=== PATIENT | female | born 1965 | race Caucasian/White ===

== ENCOUNTER 2017-07-23 10:53 | Inpatient (IN) | payer OTHER ==
[~2017-07-23] VITALS: Ht 172.7 cm; Wt 69.5 kg
--- NOTE | ~2017-07-23 | O ---
[place], [place] OPERATIVE NOTE [facility]: [id number] UNIT #: [id number] ROOM: 420 DOCTOR: EMMY LOPEZ DO BIRTHDATE: [birth year] DOS: 07/24/2017 PREOPERATIVE DIAGNOSIS: Left intertrochanteric hip fracture, 2-part. POSTOPERATIVE DIAGNOSIS: Left intertrochanteric hip fracture, 2-part. PROCEDURE: Left intertrochanteric hip fracture intramedullary nail fixation. SURGEON: Emmy Lopez DO. SOURCING SPECIALIST: Preeti. PREOPERATIVE INDICATIONS: The patient is a 52-year-old female who states that [place] when a horse stepped on her right foot, causing her to fall onto her left hip. The patient had pain and inability to ambulate. She was brought to the Emergency Department at [facility]. X-rays were obtained, followed by a CAT scan. A nondisplaced left intertrochanteric fracture, 2-part was identified. The risks and benefits of the procedure were explained to the patient preoperatively. Preoperative labs and x-rays were completed. PROCEDURE IN DETAIL: The left hip was marked in the holding area. The patient was brought to the operative suite. Spinal anesthetic was performed by Anesthesia. A timeout was performed. The patient was placed supine on the fracture table with the right lower extremity flexed and externally rotated and the left lower extremity extended with minimal traction. The left lower extremity was prepped and draped in the usual orthopedic manner. The C-arm was utilized to evaluate the fracture site. The area just proximal to the greater trochanter was injected with Marcaine 0.25% with epinephrine. A longitudinal incision was made just proximal to the greater trochanter. Subcutaneous tissue was spread down to the level of the fascia. The fascia was divided longitudinally. The greater trochanter was entered with a partially threaded K-wire. The positioning was evaluated under C-arm in multiple planes. When this was found to be adequate, the reamer and soft tissue protector were placed over the K-wire and advanced to the level of the lesser trochanter. The Synthes 11 x 130 x 170 TFN nail was placed from proximal to distal under C-arm guidance. When this was found to be adequate in multiple planes. The 130 degree guide was placed. The skin was injected with Marcaine with epinephrine. An incision was made. Subcutaneous tissue was spread down to the level of bone. The trocar and cannula were advanced to the level of the bone. Positioning was evaluated under C-arm and found to be adequate. A partially threaded K-wire was placed from lateral to medial through the neck and into the head of the femur. AP and lateral x-rays by C-arm confirmed the position. The length was measured. The reamer was set at 100 and advanced over the K-wire under C-arm guidance. The 100 mm helical blade was advanced by hand under C-arm guidance. When this was found to be within 1 cm of the some cortical bone and the position was adequate on AP and lateral position, the set screw was tightened and in the superior portion of the elizabeth. The compression was placed at the fracture site. The 130 degree cannulas were removed as was the K-wire. Attention was then turned to the distal locking screw. The triple cannula system was put into place. This [place], [place] OPERATIVE NOTE NAME: ALHAJIQUE Rick UNIT #: [id number] ROOM: [facility] DOCTOR: EMMY LOPEZ DO BIRTHDATE: [birth year] was advanced to the level of the skin. The skin was injected with Marcaine 0.25% with epinephrine. An incision was made sharply with a scalpel. Subcutaneous tissue was spread down to the level of the bone. The cannulas were advanced to the level of the bone. The bone was dimpled with the trocar. The calibrated drill bit was utilized to drill the distal locking hole. The length was measured with the depth gauge. The 36 mm distal locking screw was advanced manually. The positioning was evaluated under C-arm in multiple planes and found to be adequate. The guides were removed. C-arm was used to confirm the position of the hardware and the fracture site. All incisions were copiously irrigated with normal saline. The wounds were closed in a layered fashion with 0 Vicryl for the fascia, followed by 2-0 Vicryl and skin tenisha. The incisions were then injected again with Marcaine 0.25% with epinephrine. Xeroform, 4 x 4s, and an ABD were applied followed by Tegaderm dressing. The bilateral lower extremities were released from the fracture table and placed supine on the table. The patient was taken to the recovery room in satisfactory condition. Sponge and needle count correct. ESTIMATED BLOOD LOSS: 50 mL. DRAINS: None. PACKING: None. SPECIMENS: None. COMPLICATIONS: None. FINDINGS: Nondisplaced 2-part intertrochanteric fracture, left. IMPLANTS: Synthes TFN 11 x 130 x 170, Synthes helical blade 100 mm, Synthes locking screw 36 mm. Please noted that the patient received clindamycin 900 mg preoperatively and did develop a skin rash which resolved using Benadryl. [place], [place] OPERATIVE NOTE NAME: QUE MANE Rick UNIT #: [id number] ROOM: [facility] DOCTOR: EMMY LOPEZ DO BIRTHDATE: [birth year] EMMY LOPEZ DO CM:OPRECORD:OPERATIVE NOTE 1416 EMMY LOPEZ DO 07/24/17 1647 interface
[~2017-07-23 10:53] MED LIST: CLARITIN10 MG PO; CORDROL20 MG PO; CYCLOBENZAPRINE10 MG PO; LOPRESSOR50 M1 PO; Motrin,Rufen800 MG PO; NAPROSYN500 MG PO; NEXIUM40 MG PO; PERCOCET 325 MG1 TA2 PO; SEPTRA DS 800 M1 TAB PO; TRAMADOL HCL50 MG PO; VIBRAMYCIN100 MG PO
[2017-07-23 11:10] VITALS: BP 146/78
--- NOTE | 2017-07-23 13:11 | NUR ---
PAIN IMPROVED, PT REFUSES MORE MEDICATION AT THIS TIME. CT SCAN PENDING.
[2017-07-23 14:24] LABS: BASO % 0.3 % (0.0-1.0); EOS # 0.2 10*3/uL (0.0-0.4); EOS % 1.8 % (1.0-4.0); HEMATOCRIT 42.3 % (37.0-47.0); HEMOGLOBIN 14.4 g/dl (12.0-16.0); LYMPH # 1.4 10*3/uL (1.3-4.4); LYMPH % 12.1 % (27.0-41.0); MEAN CELL VOLUME 88.9 fl (81.0-99.0); MEAN CORPUSCULAR HGB 30.3 pg (27.0-31.0); MEAN PLATELET VOLUME 10.3 fl (9.6-12.3); MONO # 0.7 10*3/uL (0.1-1.0); MONO % 5.8 % (3.0-9.0); NEUT # 9.4 10*3/uL (2.3-7.9); NEUT % 79.6 % (47.0-73.0); PLATELET COUNT AUTOMATED 188 10*3/uL (130-400); RED BLOOD COUNT 4.76 10*6/uL (4.10-5.10); RED CELL DISTRI WIDTH 13.1 % (0-14.5); WHITE BLOOD COUNT 11.8 10*3/uL (4.8-10.8)
[2017-07-23 14:38] LABS: ALBUMIN 3.4 gm/dl (3.1-4.5); ALKALINE PHOSPHATASE 104 U/L (45-117); BUN 14 mg/dl (7-24); CHLORIDE 108 mmol/L (98-107); CREATININE 0.64 mg/dL (0.55-1.02); POTASSIUM 3.7 mmol/L (3.5-5.1); SGOT/AST 18 IU/L (3-35); SGPT/ALT 16 U/L (12-78); SODIUM 141 mmol/L (136-145); TOTAL PROTEIN 7.3 gm/dL (6.4-8.2)
--- NOTE | 2017-07-23 14:43 | NUR ---
DEANID IV PUSH STOP TIME NOW
--- NOTE | 2017-07-23 14:50 | NUR ---
DILAUDID DOSE GIVEN WAS VERY SOON EFFECTIVE FOR PAIN CONTROL. POX IN PLACE TO MONITOR POST-DOSING IS 8%.
[2017-07-23 15:30] VITALS: BP 167/89
--- NOTE | 2017-07-23 15:30 | NUR ---
A 52, admitted to , under the services of SANDRA Sage DO with a diagnosis of LEFT NON-DISPLACED FRACTURE OF HIP. Chief complaint is PAIN IN HIP AFTER HORSE STEPPED ON RT FOOT. POSITIVE PULSES BILAT PEDAL. IV TO LEFT ANTECUBITAL. Patient arrived via stretcher from ER. Monitor applied. Initial assessment completed. Vital signs taken and recorded. SANDRA SAGE DO notified of admission to the unit. Orders received. See assessment for past medical history, medications and allergies. Patient and/or family oriented to unit. [facility] Clothing/patient valuable form completed. HAYLEE DIAZ
[2017-07-23 16:00] VITALS: BP 167/89
[2017-07-23 16:10] LABS: BILIRUBIN NEGATIVE (NEGATIVE); BLOOD TRACE-INTACT (NEGATIVE); CLARITY CLEAR (CLEAR); COLOR YELLOW (YELLOW); GLUCOSE NEGATIVE (NEGATIVE); KETONE NEGATIVE (NEGATIVE); LEUKO ESTERASE NEGATIVE (NEGATIVE); NITRITE NEGATIVE (NEGATIVE); PH 7.5 (5.0-9.0); SPECIFIC GRAVITY 1.015 (1.005-1.030); UROBILINOGEN 0.2 E.U./dl (0.2-1.0)
[2017-07-23 16:23] LABS: WBC 0-2 wbc/hpf (0-5)
[2017-07-23 16:24] LABS: BACTERIA TRACE
[2017-07-23 16:25] LABS: RBC 0-2 rbc/hpf (0-2)
[2017-07-23 16:31] LABS: FREE T4 1.19 ng/dl (0.76-1.46)
[2017-07-23 16:36] LABS: THYROID STIM HORMONE (HS) 1.72 uIU/ml (0.358-4.75)
--- NOTE | 2017-07-23 18:43 | NUR ---
MORPHINE GIVEN FOR LEFT HIP PAIN, LEFT HEEL DISCOMFORT. RATE 09/03. SCD & SHAY PLACED ONTO RIGHT LEG PER ORDERS
--- NOTE | 2017-07-23 19:51 | NUR ---
PT STATING SOME RELIEF IN HIP PAIN. VISITORS AT BEDSIDE.
[2017-07-23 20:00] VITALS: BP 165/76
--- NOTE | 2017-07-23 20:14 | NUR ---
GINGERALE AND ICE PROVIDED FOR PT. SHE ANSWERS "YES" TO WHEN ASKED IF PAIN IS CONTROLLED.
--- NOTE | 2017-07-23 22:22 | NUR ---
PT HAD COMPLETE PREOP BATH AND BED CHANGE DONE. NORCO GIVEN AT 2208 POST BATH FOR COMPLAINTS OF LT HIP PAIN 09/03,
--- NOTE | 2017-07-23 22:43 | NUR ---
NORCO WAS EFFECTIVE FOR PAIN. PT DOZING, BODY RELAXED.
--- NOTE | 2017-07-23 23:35 | NUR ---
STATES MINIMAL RELIEF FROM EARLIER NORCO BUT CONTINUES TO C/O PAIN RATING AN 8. MEDICATED WITH MORPHINE IV PER PRN ORDER. CALL LIGHT WITHIN REACH. WILL MONITOR FOR EFFECTIVENESS
[2017-07-24] VITALS (9 sets, daily range): BP systolic 142–183; BP diastolic 64–90
--- NOTE | 2017-07-24 00:30 | NUR ---
EARLIER MEDS APPEAR EFFECTIVE. SLEEPING. RESPIRATIONS EASY. VSS. CALL LIGHT WITHIN REACH. NPO FOR SURGERY IN AM
--- NOTE | 2017-07-24 02:00 | NUR ---
CONTINUES TO SLEEP
--- NOTE | 2017-07-24 03:37 | NUR ---
REQUESTED AND RECEIVED MORPHINE IV PER PRN ORDER FOR COMPLAINTS OF LEFT HIP PAIN RATING A 10. CALL LIGHT WITHIN REACH. WILL MONITOR FOR EFFECTIVENESS
--- NOTE | 2017-07-24 04:15 | NUR ---
EARLIER MEDS APPEAR EFFECTIVE, SLEEPING. RESPIRATIONS EASY. CALL LIGHT WITHIN REACH.
--- NOTE | 2017-07-24 04:53 | NUR ---
PATIENT AWAKENS, YELLS OUT IN PAIN. LEG READJUSTED AND ELEVATED TO KEEP HEEL OFF BED. MEDICATED WITH NORCO PER PRN ORDER WITH A SIP OF WATER FOR C/O LEFT HIP AND HEEL PAIN RATING A 10. CALL LIGHT WITHIN REACH. WILL MONITOR FOR EFFECTIVENESS
--- NOTE | 2017-07-24 06:00 | NUR ---
MEDS APPEAR EFFECTIVE. RESTING WITH EYES CLOSED.
--- NOTE | 2017-07-24 06:25 | NUR ---
TRANSPORTED OFF FLOOR VIA BED FOR SURGERY THIS AM
--- NOTE | 2017-07-24 06:52 | NUR ---
Shift chart check completed.
[2017-07-24 07:01] LABS: BASO % 0.2 % (0.0-1.0); EOS # 0.2 10*3/uL (0.0-0.4); EOS % 1.6 % (1.0-4.0); HEMATOCRIT 43.5 % (37.0-47.0); HEMOGLOBIN 14.5 g/dl (12.0-16.0); LYMPH # 1.1 10*3/uL (1.3-4.4); LYMPH % 11.5 % (27.0-41.0); MEAN CELL VOLUME 89.3 fl (81.0-99.0); MEAN CORPUSCULAR HGB 29.8 pg (27.0-31.0); MEAN CORPUSCULAR HGB CONC 33.3 g/dl (33.0-37.0); MEAN PLATELET VOLUME 10.5 fl (9.6-12.3); MONO # 0.5 10*3/uL (0.1-1.0); MONO % 5.5 % (3.0-9.0); NEUT % 80.9 % (47.0-73.0); PLATELET COUNT AUTOMATED 169 10*3/uL (130-400); RED BLOOD COUNT 4.87 10*6/uL (4.10-5.10); RED CELL DISTRI WIDTH 13.2 % (0-14.5); WHITE BLOOD COUNT 9.9 10*3/uL (4.8-10.8)
--- NOTE | 2017-07-24 07:16 | NUR ---
PATIENT IN SURGERY.
[2017-07-24 07:31] LABS: CHLORIDE 106 mmol/L (98-107); POTASSIUM 4.1 mmol/L (3.5-5.1); SODIUM 137 mmol/L (136-145)
[2017-07-24 07:43] LABS: ALBUMIN 3.1 gm/dl (3.1-4.5); ALKALINE PHOSPHATASE 102 U/L (45-117); BUN 17 mg/dl (7-24); CHOLESTEROL 169 mg/dL (<200); HDL CHOLESTEROL 33 mg/dl (40-60); LDL CHOLESTEROL 119 mg/dL (9-159); MAGNESIUM 2.3 mg/dL (1.5-2.1); PHOSPHOROUS 3.4 mg/dL (2.5-4.9); SGOT/AST 14 IU/L (3-35); SGPT/ALT 15 U/L (12-78); TRIGLYCERIDES 83 mg/dl (<150); VLDL CHOLESTEROL 17 mg/dL (6-40)
--- NOTE | 2017-07-24 08:49 | NUR ---
MED REC IS UNCHANGED EVEN THOUGH THE PATIENT IS IN SURGERY THIS NURSE DID THE ADMISSION YESTERDAY/
--- NOTE | 2017-07-24 09:03 | NUR ---
PHYSICAL THERAPY Patient in surgery. Will require ortho orders to initate. Thank you for this referral. Janey lemos,PT
--- NOTE | 2017-07-24 09:03 | NUR ---
Occupational Therapy referral received. Patient in surgery this am. OTR will evaluate after surgery as indicated. Teresa Damon OTR/Juhi
--- NOTE | 2017-07-24 09:13 | NUR ---
case management attempted to visit with patient, patient out of the room for surgery. will see at a later time
--- NOTE | 2017-07-24 10:43 | NUR ---
RETURNED FROM SURGERY WITH DRESSING INTACT TO LEFT HIP. VSS. BP 16/80 MANUAL. AAOX3 WITH NO C/O PAIN AT PRESENT. TOLD TO NOTIFY STAFF OF INCREASE IN PAIN. PER PATIENT SHE IS NOT GOING TO A SNF BUT WILL GO TO HER SISTERS FOR RECOVERY. PPP BILAT. SCD TO BILAT LEGS ON & TOLERATING THEM WELL. IV HEP LOCK REMOAN SECURE. VANCOMYCIN STARTED PER ORDERS.
--- NOTE | 2017-07-24 11:06 | NUR ---
PHYSICAL THERAPY PAtient returned form surgery, anxious to get OOB. Motor awake left foot but continues with alterend sensation. Will attempt out of bed when motor and sensation have both returned. Thank you for this referral. sabina Box,PT
--- NOTE | 2017-07-24 12:20 | NUR ---
ZOFRAN GIVEN AFTER 200cc EMESIS. DRESSING REMAINS INTACT TO LEFT HIP. ICE PACK IN PLACE - MOVING TOES & SCD ON BILAT
--- NOTE | 2017-07-24 13:59 | NUR ---
PHYSICAL THERAPY PAtient evaluated on 4, full evaluation to follow. Continue with PT as per plan of care with fall, recent fall at home with left femur fracture with nailing repair 07/24/17 permitted WBAT and acute debility precautions. refuses SNF. Home [facility] and home health RN and PT. PAtient is moderate complexity via chart review, tests and evaluation: [id number]. Thank you for this referral. Janey Box,PT
--- NOTE | 2017-07-24 14:05 | NUR ---
WASHED UP ALL THE BETADINE FROM AROUND SURGICAL SITE & LEGS D/T ITCHING. NUBAIN GIVEN
--- NOTE | 2017-07-24 14:36 | NUR ---
NUBAIN EFFECTIVE - ITCHING RESOLVED PER PT - DOZING IN CHAIR
--- NOTE | 2017-07-24 14:41 | NUR ---
Occupational Therapy evaluation completed this date on 4 with full eval to follow. Precautions include fall risk, WBAT LLE, left hip nailing, moderate complexity level 11648. Recommend OT per POC and OT home health upon d/c as patient refuses SNF. Thank you for this referral. Teresa Damon OTR/l
--- NOTE | 2017-07-24 19:10 | NUR ---
PT. AWAKE, ALERT, AND ORIENTED. PT. RATED PAIN AT "8/10" ON 0-10 SCALE. REQUESTED PAIN MEDICATION, WAS GIVEN 325 MG OF NORCO PER PRN ORDERS. PT. HAD NC OFF UPON ENTERING AND SPO2 @ 89 UPON ASSESSING. PT. WAS ENCOURAGED TO LEAVE NC ON @ 3L, AND TO COUGH AND DEEP BREATHE, AND REPOSITION FREQUENTLY. PT. REQUESTED MORE ICE FOR HIP, ICE WAS GIVEN, DRESSING WAS ASSESSED CLEAN, DRY AND INTACT. PT. DID NOT HAVE SCD'S ON AT THIS TIME, SCD'S WERE PLACED ON PT. PRIOR TO EXITING THIS NURSE EXITING THE ROOM. LUNG SOUNDS WERE DIMINISHED AND CLEAR. S1S2 HEART SOUNDS ASSESSED, PPP, NO EDEMA. NORMOACTIVE BOWELS SOUNDS X 4 QUADS. CALL LIGHT WITHIN REACH, BED IN LOWEST POSITION, WHEELS LOCKED.
--- NOTE | 2017-07-24 20:10 | NUR ---
PT. RESTING IN BED, RESPIRATIONS EASY AND REGULAR, NO SIGNS OR SYMPTOMS OF PAIN OR DISCOMFORT. PRN NORCO EFFECTIVE AT THIS TIME. CALL LIGHT IN REACH.
[2017-07-25] VITALS: BP 124/53
--- NOTE | 2017-07-25 00:01 | NUR ---
patient medicated with prn norco for pain on the left side rated 9/10 on a 0/10 pain scale
--- NOTE | 2017-07-25 01:26 | NUR ---
PATIENT RESTING IN BED WITH RESPS EASY AND REGULAR. MEDICATION SEEMS EFFECTIVE. BED IN LOWEST POSITION, CALL LIGHT IN REACH
--- NOTE | 2017-07-25 04:03 | NUR ---
MEDICATED WITH PRN NORCO FOR PAIN RATED 8/10 ON A 0/10 PAIN SCALE
--- NOTE | 2017-07-25 05:30 | NUR ---
24 HR chart check completed.
[2017-07-25 08:00] VITALS: BP 106/62
[2017-07-25 08:09] LABS: BASO % 0.2 % (0.0-1.0); EOS # 0.2 10*3/uL (0.0-0.4); EOS % 2.2 % (1.0-4.0); HEMATOCRIT 43.5 % (37.0-47.0); HEMOGLOBIN 13.9 g/dl (12.0-16.0); LYMPH # 1.4 10*3/uL (1.3-4.4); LYMPH % 15.3 % (27.0-41.0); MEAN CELL VOLUME 91.6 fl (81.0-99.0); MEAN CORPUSCULAR HGB 29.3 pg (27.0-31.0); MEAN PLATELET VOLUME 10.7 fl (9.6-12.3); MONO # 0.7 10*3/uL (0.1-1.0); MONO % 7.9 % (3.0-9.0); NEUT # 6.6 10*3/uL (2.3-7.9); NEUT % 74.2 % (47.0-73.0); PLATELET COUNT AUTOMATED 155 10*3/uL (130-400); RED BLOOD COUNT 4.75 10*6/uL (4.10-5.10); RED CELL DISTRI WIDTH 13.4 % (0-14.5)
--- NOTE | 2017-07-25 08:17 | NUR ---
PHYSICAL THERAPY Pt seen this AM 1:1 for her therapy session. Bernadette said that she would try transfer up into her bedside chair, but said that she did not have her pain meds yet but would try. Start with rom to left LE hip before transfer up, SCD's taken off and rom within pain tolerance. Followed by transfer supine up into sitting but due to Pt's pain wanting to lay back down at this time. Said that her pain meds are due and to come back after that and she would try again. Pt is a left hip nailing and is WBAT. NERY ESPINOZA MOLD MAKER PLASTIC MOLDS.
--- NOTE | 2017-07-25 08:22 | NUR ---
PATIENT C/O LEFT HIP PAIN. RATE 7/10 ON PAIN SCALE. MEDICATED WITH NORCO PER PRN ORDER. WILL CONTINUE TO MONITOR.
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
--- NOTE | 2017-07-25 10:23 | NUR ---
PATIENT C/O SEVERE PAIN AFTER PHYSICAL THERAPY. MEDICATED WITH MORPHINE SULFATE 2MG IV PER PRN ORDER. WILL CONTINUE TO MONITOR.
--- NOTE | 2017-07-25 10:41 | NUR ---
case management received a message that patient will be going home on lovenox 40mg daily x 2 weeks, called [facility], medication needed a prior authorization, [place], spoke to Rose, medication was approved, call [facility] back and patient will have a $0 copay, hospitalist nurse director notified
--- NOTE | 2017-07-25 11:18 | NUR ---
PHYSICAL THERAPY Back this AM to see Bernadette Pt was up in her bedside chair at this visit. Transfer sit/stand with MOD A X 1, standing balance with wheeled walker once up MIN A X 1. Then gait with W/W 26' X 1, and MOD ARTIST MANNEQUIN COLORING X 1, with cueing for gait, walker and WBAT safety with C/O left hip pain with her gait but did well this her first gait. Pt back up in her bedside chair, call light and tray in front no other complaint, treatment time 17 min. NERY ESPINOZA CORRECTIONAL MANAGER.
[2017-07-25 12:00] VITALS: BP 112/67
[2017-07-25] MEDS ORDERED: BSC DEVI (12:16)
[2017-07-25] MEDS ORDERED: WALKER DEVI (12:16)
[2017-07-25] MEDS ORDERED: Lovenox40 MG/0.4 SC (12:16)
--- NOTE | 2017-07-25 13:01 | NUR ---
PATIENT C/O LEFT HIP PAIN. MEDICATED WITH PERCOCET PER PRN ORDER. WILL CONINTUE TO MONITOR.
--- NOTE | 2017-07-25 13:20 | NUR ---
PHYSICAL THERAPY Bernadette was seen this PM 1:1 for her physical therapy session. Pt having C/O more left hip, hamstring pain. Transfer supine/sit MOD A X 1, sitting balance CGA X 1, sit/stand and up on wheeled walker for standing balance, weight shift MIN A X 1, followed by gait 10' X 1, and wanting to get back into bed said that the hip pain was just hurting her and wanting to quit. Pt back supine in bed and feeling better now and just wanting to rest, treatment time 16 min. NERY ESPINOZA LAB ASSISTANT.
--- NOTE | 2017-07-25 13:36 | NUR ---
Patient requested home health upon discharged with [facility], however [facility] does not accept this patients insurance. Will contact [facility] and fax referral.
[2017-07-25] MEDS ORDERED: NICODERM CQ1 EAC2 T (15:35)
[2017-07-25 16:00] VITALS: BP 122/89
--- NOTE | 2017-07-25 17:21 | NUR ---
PATIENT MEDICATED WITH OXY IR 5MG PER PRN ORDER FOR C/O LEFT HIP PAIN. WILL CONTINUE TO MONITOR.
[2017-07-25 20:00] VITALS: BP 164/72
--- NOTE | 2017-07-25 20:00 | NUR ---
ASSUMED CARE OF PATIENT. PATIENT RESTING IN BED WATCHING TV. REPOSITIONED WITH MINIMAL ASSIST TO RIGHT SIDE. ASSESSMENT COMPLETE. ALERT AND ORIENTED TO PERSON PLACE AND TIME. RESPIRATIONS EASY AND REGULAR. DENIES SHORTNESS OF BREATH OR COUGH. NO EDEMA NOTED. DENIES CHEST PAIN OR PRESSURE. DRESSING TO LEFT HIP DRY AND INTACT. BED IN LOWEST POSITOIN, CALL LIGHT IN REACH
--- NOTE | 2017-07-25 20:53 | NUR ---
PRN PERCOCET GIVEN FOR C/O LEFT HIP PAIN RATED 8/10 ON A 0/10 PAIN SCALE. RIGHT DOSE AND PATIENT CHECKED WITH ID BAND AND PATIENT STATED VERBALLY. BED IN LOWEST POSITION, CALL LIGHT IN REACH
--- NOTE | 2017-07-25 21:53 | NUR ---
MEDICATION EFFECTIVE PER PATIENT
[2017-07-26] VITALS: BP 182/88
--- NOTE | 2017-07-26 00:30 | NUR ---
MEDICATED WITH PRN OXY IR FOR C/O LEFT HIP PAIN RATED 6/10 ON A 0/10 PAIN SCALE. WILL MONITOR
--- NOTE | 2017-07-26 01:30 | NUR ---
DR HASSAN AWARE OF ELEVATED BP. STATES TO WAIT AND KEEP AN EYE ON IT. WILL MONITOR
--- NOTE | 2017-07-26 01:32 | NUR ---
PATIENT RESTING WITH EYES CLOSED. RESPS EASY AND REGULAR. MEDICATION SEEMS EFFECTIVE
[2017-07-26 04:00] VITALS: BP 188/87
--- NOTE | 2017-07-26 04:15 | NUR ---
DR CURRY AWARE OF BLOOD PRESSURE 188/87. ORDER FOR TORADOL DUE TO PATIENT BEING IN PAIN, WILL MONITOR.
[2017-07-26 06:05] LABS: BASO % 0.2 % (0.0-1.0); EOS # 0.3 10*3/uL (0.0-0.4); EOS % 3.1 % (1.0-4.0); HEMATOCRIT 40.1 % (37.0-47.0); HEMOGLOBIN 13.4 g/dl (12.0-16.0); LYMPH % 11.5 % (27.0-41.0); MEAN CELL VOLUME 89.1 fl (81.0-99.0); MEAN CORPUSCULAR HGB 29.8 pg (27.0-31.0); MEAN CORPUSCULAR HGB CONC 33.4 g/dl (33.0-37.0); MEAN PLATELET VOLUME 10.5 fl (9.6-12.3); MONO # 0.7 10*3/uL (0.1-1.0); MONO % 8.7 % (3.0-9.0); NEUT # 6.3 10*3/uL (2.3-7.9); NEUT % 76.1 % (47.0-73.0); PLATELET COUNT AUTOMATED 148 10*3/uL (130-400); WHITE BLOOD COUNT 8.3 10*3/uL (4.8-10.8)
[2017-07-26 06:19] LABS: ALBUMIN 2.6 gm/dl (3.1-4.5); ALKALINE PHOSPHATASE 83 U/L (45-117); BUN 12 mg/dl (7-24); CHLORIDE 102 mmol/L (98-107); CREATININE 0.65 mg/dL (0.55-1.02); POTASSIUM 3.8 mmol/L (3.5-5.1); SGOT/AST 20 IU/L (3-35); SGPT/ALT 18 U/L (12-78); SODIUM 136 mmol/L (136-145); TOTAL PROTEIN 6.5 gm/dL (6.4-8.2)
[2017-07-26 08:00] VITALS: BP 158/76
--- NOTE | 2017-07-26 08:25 | NUR ---
PHYSICAL THERAPY Bernadette seen this AM 1:1 and having her pain meds in her which helped. Transfer supine/sit MOD A X 1, sitting balance supervision X 1. Sit/stand standing balance once up MIN A X 1. Gait 60' X 2, with wheeled walker and WBAT left LE and doing well with this, MOD A X 1, with cueing for safety. Pt up in her bedside chair, call light, phone and rom to left LE with improvement in rom and pain. NERY ESPINOZA DIRECTOR COST.
[2017-07-26] MEDS ORDERED: PERCOCET 5-3251 EACH PO (10:32)
--- NOTE | 2017-07-26 10:47 | NUR ---
case management visits with patient, patient will be going home today, recieved scripts for walker and bedside commode, patient chose [facility], called [facility], faxed scripts, they will deliver to patient's sisters home, tool and production planner will also notify [facility]
--- NOTE | 2017-07-26 10:50 | NUR ---
Patient being discharged to home with [facility]. Faxed referral yesterday 07/25/17. Called [facility] and notfied patient is discharged today.
--- NOTE | 2017-07-26 10:54 | NUR ---
case management received a message from Torri at [facility], they do not take patient's insurance, will try another company
--- NOTE | 2017-07-26 11:10 | NUR ---
case management called [facility] in [place], they accept patient's insurance, script and patient's information faxed to them, they stated that patient will have to pick these items up, informed patient where company was located and they family would have to pick these up. patient verbalized understanding
--- NOTE | 2017-07-26 11:56 | NUR ---
PT C/O PAIN IN THE HIP REQUESTING PRN PAIN MEDICATION ADMISTERED ORDERED, WILL MONITOR EFFECTS
--- NOTE | 2017-07-26 12:23 | NUR ---
Discharge instructions reviewed with patient/family. Patient receptive and verbalizes understanding. Follow-up care arranged. Written instructions given to patient/family. YULIYA AVALOS
--- NOTE | 2017-07-30 07:49 | NUR ---
PHYSICAL THERAPY CO-SIGN I approve of the Phyical Therapy notes written above. ROSHAN NORWOOD PT
== END 2017-07-26 12:23 | disposition home health service (06) | DRG 480 ==
LOC: ED 10:53 → 4E 14:21 → EDHOLD 14:21 → 4E 14:36
PROVIDERS: Internal Medicine; Nurse Practitioner Family; Orthopaedic Surgery; Registered Nurse; ADMIT Internal Medicine
PROC: 0QH706Z Insertion of Intramedullary Internal Fixation Device into Left Upper Femur, Open Approach (ICD-10-PCS; principal; 2017-07-24)
DX: S72.142A Displaced intertrochanteric fracture of left femur, initial encounter for closed fracture (principal); E43 Unspecified severe protein-calorie malnutrition; E87.8 Other disorders of electrolyte and fluid balance, not elsewhere classified; M32.9 Systemic lupus erythematosus, unspecified; E83.41 Hypermagnesemia; I10 Essential (primary) hypertension; D72.829 Elevated white blood cell count, unspecified; F17.200 Nicotine dependence, unspecified, uncomplicated; R73.9 Hyperglycemia, unspecified; E53.8 Deficiency of other specified B group vitamins; M25.562 Pain in left knee; S99.921A Unspecified injury of right foot, initial encounter; W18.31XA Fall on same level due to stepping on an object, initial encounter; Y93.52 Activity, horseback riding; Y92.89 Other specified places as the place of occurrence of the external cause; Z90.710 Acquired absence of both cervix and uterus; Z90.49 Acquired absence of other specified parts of digestive tract; Z82.49 Family history of ischemic heart disease and other diseases of the circulatory system; Z88.0 Allergy status to penicillin; Z71.6 Tobacco abuse counseling; Z88.8 Allergy status to other drugs, medicaments and biological substances; Z91.041 Radiographic dye allergy status; Y99.8 Other external cause status; Z68.23 Body mass index [BMI] 23.0-23.9, adult; Z79.01 Long term (current) use of anticoagulants

== ENCOUNTER → 2017-08-09 | Outpatient (CLI) | payer OTHER ==
[~2017-08-09] MED LIST changes: +BSC DEVI; +Lovenox40 MG/0.4 SC; +NICODERM CQ1 EAC2 T; +PERCOCET 5-3251 EACH PO; +WALKER DEVI
== END | disposition home or self-care (01) ==
LOC: ORTHO 02:48
DX: S72.102D Unspecified trochanteric fracture of left femur, subsequent encounter for closed fracture with routine healing (principal); X58.XXXD Exposure to other specified factors, subsequent encounter

== ENCOUNTER 2017-08-24 18:25 | Emergency (ER) | payer OTHER ==
[~2017-08-24] VITALS: Ht 172.7 cm; Wt 68.0 kg
== END 2017-08-24 23:30 | disposition home or self-care (01) ==
LOC: ED 18:25
DX: G89.18 Other acute postprocedural pain (principal); M25.552 Pain in left hip; F17.200 Nicotine dependence, unspecified, uncomplicated; Z90.710 Acquired absence of both cervix and uterus; Z98.890 Other specified postprocedural states; Z79.899 Other long term (current) drug therapy; Z91.041 Radiographic dye allergy status; Z88.0 Allergy status to penicillin; Z88.1 Allergy status to other antibiotic agents

== ENCOUNTER → 2017-09-11 | Outpatient (CLI) | payer OTHER | END | disposition home or self-care (01) | LOC: ORTHO 00:51 | DX: M25.552 Pain in left hip (principal); Z98.890 Other specified postprocedural states ==

== ENCOUNTER → 2017-10-08 | Outpatient (CLI) | payer OTHER | END | disposition home or self-care (01) | LOC: ORTHO 03:04 | DX: S72.145D Nondisplaced intertrochanteric fracture of left femur, subsequent encounter for closed fracture with routine healing (principal); X58.XXXD Exposure to other specified factors, subsequent encounter ==

== ENCOUNTER → 2018-01-20 | Outpatient (CLI) | payer OTHER | END | disposition home or self-care (01) | LOC: ORTHO 03:51 | DX: S72.145D Nondisplaced intertrochanteric fracture of left femur, subsequent encounter for closed fracture with routine healing (principal); X58.XXXD Exposure to other specified factors, subsequent encounter ==

== ENCOUNTER 2018-03-28 07:13 | Inpatient (IN) | payer OTHER ==
[~2018-03-28] VITALS: Ht 172.7 cm; Wt 73.0 kg
[2018-03-28] VITALS (7 sets, daily range): BP systolic 138–178; BP diastolic 71–104
--- NOTE | ~2018-03-28 | PR ---
[place], [place] PROGRESS NOTE NAME: QUE MANE UNIT #: [id number] ROOM: [facility] DOCTOR: ALIDA JACKSON MD BIRTHDATE: [birth year] DOS: 03/30/2018 SUBJECTIVE: The patient was seen today at her bedside in the intensive care unit for followup of chest discomfort and elevated troponin levels. She continues to have episodes of chest discomfort with and without food that is not particularly well relieved by antacids anymore. Her troponin level did show a typical rise and fall pattern suggesting acute myocardial injury. Her peak troponin, however, was only 0.168. PHYSICAL EXAMINATION: VITAL SIGNS: Today, her pulse is 55 and regular, blood pressure is 151/79. She is afebrile. She weighs 73 kilograms. NECK: Supple. She has no jugular distention. Carotids are full. There are no bruits. LUNGS: Respirations are unlabored. Her chest is clear to auscultation and percussion. HEART: Has a regular rhythm with an S4 gallop. The PMI is not displaced. ABDOMEN: Soft and normally active. EXTREMITIES: Showed no edema. IMPRESSION: 1. Unstable angina with recent non-ST elevation myocardial infarction and recurrent chest pain after the infarction. 2. Gastroesophageal reflux disease. 3. Long-term and ongoing cigarette abuse. 4. Dyslipidemia. 5. Strong family history of early coronary disease. PLAN: The patient will be transferred to [facility] within the next 24 hours for catheterization and potential revascularization. She understands the risks and benefits of the procedure and requests that we proceed. [facility] and I thank the hospitalist physicians at [facility] for asking our advice regarding the patient's care. [place], [place] PROGRESS NOTE NAME: QUE MANE UNIT #: [id number] ROOM: [facility] DOCTOR: ALIDA JACKSON MD BIRTHDATE: [birth year] ALIDA JACKSON MD CM:PNTRANS 1401 1412 ALIDA JACKSON MD 04/01/18 1409 interface
--- NOTE | ~2018-03-28 | PR ---
[place], [place] PROGRESS NOTE NAME: QUE MANE [facility] #: [id number] UNIT #: [id number] ROOM: [facility] DOCTOR: ALIDA JACKSON MD BIRTHDATE: [birth year] DOS: 03/29/2018 SUBJECTIVE: The patient was seen at her bedside in the intensive care unit today 03/29/2018 for followup of chest discomfort and abnormal troponin levels. She is a 53-year-old woman who presented to the hospital with the above complaints. She does have a history of cigarette abuse and a strong family history of early coronary artery disease. In addition, she does have dyslipidemia. The patient did have a catheterization done at the [facility] on 03/31/2015 for electrocardiographic abnormalities and elevated troponin. The left main was normal. The LAD had mild luminal irregularities. The circumflex had moderate luminal irregularities with sequential 30% and 50% stenotic lesions in the mid segment of the RCA. It was felt that the patient did not have occlusive disease and should be treated medically. She has continued to smoke since then. At this point, she does note continued chest discomfort which is especially worse after meals. Antacids are variably effective. She came into the hospital where her electrocardiogram did show lateral T-wave inversions and ST depressions with mild ST elevation in leads V1 and V2. In addition, her troponin was elevated up to 0.168. In the intensive care unit, she continues to have episodes of intermittent chest discomfort that are variably relieved by antacids. PHYSICAL EXAMINATION: VITAL SIGNS: Today, her pulse is 55 and regular, blood pressure is 161/69. She weighs 73 kg and has a body mass index 24.5. NECK: Supple. She has no jugular distention. Carotids are full. She has no bruit. She has no neck or supraclavicular masses. LUNGS: Respirations are unlabored. Her chest is clear to auscultation and percussion. She had no presacral edema or chest wall tenderness. HEART: Had a regular rhythm with an S4 gallop. ABDOMEN: Soft and normally active without masses or tenderness. EXTREMITIES: Showed no edema. IMPRESSION: 1. Unstable angina with recent non-ST elevation myocardial infarction and recurrent chest pain after myocardial infarction. 2. Gastroesophageal reflux disease. 3. Long-term and ongoing cigarette abuse. 4. Dyslipidemia. 5. Strong family history of early coronary disease. PLAN: I discussed my concerns with the patient. I think that the next step is for her to undergo catheterization. She has agreed. We will plan on transferring her to [facility] on 03/31/2018, Saturday morning to there at 7:00 a.m. for catheterization and potential revascularization. She has a score of 9 with an indication of 3. [place], [place] PROGRESS NOTE NAME: QUE MANE UNIT #: [id number] ROOM: [facility] DOCTOR: ALIDA JACKSON MD BIRTHDATE: [birth year] I thank the hospitalist physicians for asking our advice regarding her care. ALIDA JACKSON MD CM:PNSTACEY [id number] ALIDA JACKSON MD 03/29/18 1515 interface
[2018-03-28 07:57] LABS: BASO # 0.1 10*3/uL (0.0-0.1); BASO % 0.7 % (0.0-1.0); EOS # 0.3 10*3/uL (0.0-0.4); EOS % 3.5 % (1.0-4.0); HEMATOCRIT 48.3 % (37.0-47.0); HEMOGLOBIN 15.9 g/dl (12.0-16.0); LYMPH # 1.5 10*3/uL (1.3-4.4); LYMPH % 21.3 % (27.0-41.0); MEAN CORPUSCULAR HGB 29.3 pg (27.0-31.0); MEAN CORPUSCULAR HGB CONC 32.9 g/dl (33.0-37.0); MEAN PLATELET VOLUME 10.4 fl (9.6-12.3); MONO # 0.5 10*3/uL (0.1-1.0); MONO % 6.7 % (3.0-9.0); NEUT # 4.8 10*3/uL (2.3-7.9); NEUT % 67.5 % (47.0-73.0); PLATELET COUNT AUTOMATED 198 10*3/uL (130-400); RED BLOOD COUNT 5.43 10*6/uL (4.10-5.10); RED CELL DISTRI WIDTH 12.7 % (0-14.5); WHITE BLOOD COUNT 7.2 10*3/uL (4.8-10.8)
[2018-03-28 08:18] LABS: ALBUMIN 3.4 gm/dl (3.1-4.5); BUN 16 mg/dl (7-24); CHLORIDE 105 mmol/L (98-107); CREATININE 0.86 mg/dL (0.55-1.02); SGOT/AST 17 IU/L (3-35); SGPT/ALT 13 U/L (12-78); SODIUM 140 mmol/L (136-145); TOTAL PROTEIN 7.5 gm/dL (6.4-8.2)
[2018-03-28 08:20] LABS: ALKALINE PHOSPHATASE 108 U/L (45-117)
[2018-03-28 08:25] LABS: TROPONIN I 0.154 ng/ml (<0.045)
[2018-03-29 00:01] VITALS: BP 139/72
[2018-03-29 04:00] VITALS: BP 145/76
[2018-03-29 05:20] LABS: BASO % 0.5 % (0.0-1.0); EOS # 0.3 10*3/uL (0.0-0.4); EOS % 4.4 % (1.0-4.0); HEMATOCRIT 45.5 % (37.0-47.0); HEMOGLOBIN 14.7 g/dl (12.0-16.0); LYMPH % 33.5 % (27.0-41.0); MEAN CELL VOLUME 90.3 fl (81.0-99.0); MEAN CORPUSCULAR HGB 29.2 pg (27.0-31.0); MEAN CORPUSCULAR HGB CONC 32.3 g/dl (33.0-37.0); MEAN PLATELET VOLUME 10.7 fl (9.6-12.3); MONO # 0.5 10*3/uL (0.1-1.0); NEUT # 3.2 10*3/uL (2.3-7.9); NEUT % 53.4 % (47.0-73.0); PLATELET COUNT AUTOMATED 183 10*3/uL (130-400); RED BLOOD COUNT 5.04 10*6/uL (4.10-5.10); RED CELL DISTRI WIDTH 12.6 % (0-14.5); WHITE BLOOD COUNT 5.9 10*3/uL (4.8-10.8)
[2018-03-29 05:55] LABS: ALBUMIN 3.1 gm/dl (3.1-4.5); ALKALINE PHOSPHATASE 99 U/L (45-117); BUN 18 mg/dl (7-24); CHLORIDE 105 mmol/L (98-107); CHOLESTEROL 159 mg/dL (<200); FREE T4 1.05 ng/dl (0.76-1.46); HDL CHOLESTEROL 22 mg/dl (40-60); LDL CHOLESTEROL 106 mg/dL (9-159); PHOSPHOROUS 4.1 mg/dL (2.5-4.9); SGOT/AST 12 IU/L (3-35); SGPT/ALT 15 U/L (12-78); SODIUM 141 mmol/L (136-145); TRIGLYCERIDES 154 mg/dl (<150); VLDL CHOLESTEROL 31 mg/dL (6-40)
[2018-03-29 06:00] LABS: CREATININE 0.85 mg/dL (0.55-1.02)
[2018-03-29 06:09] LABS: ACT PARTIAL THROMBO TIME 26.2 SECONDS (20.8-31.5)
[2018-03-29 06:57] LABS: VITAMIN D, 25-HYDROXY 17.1 ng/mL (30-100)
[2018-03-29 08:00] VITALS: BP 161/69
[2018-03-29 12:00] VITALS: BP 185/109
[2018-03-29 16:00] VITALS: BP 167/88
[2018-03-29 20:00] VITALS: BP 172/92
[2018-03-30] VITALS: BP 160/92
[2018-03-30 04:00] VITALS: BP 159/87
[2018-03-30 06:25] LABS: BASO % 0.6 % (0.0-1.0); EOS # 0.3 10*3/uL (0.0-0.4); EOS % 4.2 % (1.0-4.0); HEMATOCRIT 44.4 % (37.0-47.0); HEMOGLOBIN 14.6 g/dl (12.0-16.0); LYMPH # 1.7 10*3/uL (1.3-4.4); LYMPH % 26.7 % (27.0-41.0); MEAN CELL VOLUME 88.6 fl (81.0-99.0); MEAN CORPUSCULAR HGB 29.1 pg (27.0-31.0); MEAN CORPUSCULAR HGB CONC 32.9 g/dl (33.0-37.0); MEAN PLATELET VOLUME 10.9 fl (9.6-12.3); MONO # 0.5 10*3/uL (0.1-1.0); MONO % 7.7 % (3.0-9.0); NEUT # 3.9 10*3/uL (2.3-7.9); NEUT % 60.5 % (47.0-73.0); PLATELET COUNT AUTOMATED 181 10*3/uL (130-400); RED BLOOD COUNT 5.01 10*6/uL (4.10-5.10); RED CELL DISTRI WIDTH 12.4 % (0-14.5); WHITE BLOOD COUNT 6.5 10*3/uL (4.8-10.8)
[2018-03-30 06:39] LABS: BUN 25 mg/dl (7-24); CHLORIDE 103 mmol/L (98-107); CREATININE 0.81 mg/dL (0.55-1.02); SODIUM 140 mmol/L (136-145)
[2018-03-30 06:45] LABS: TROPONIN I 0.094 ng/ml (<0.045)
[2018-03-30 08:00] VITALS: BP 173/90
[2018-03-30 12:00] VITALS: BP 151/79
[2018-03-30 16:00] VITALS: BP 156/78
[2018-03-30] MEDS ORDERED: AVPAK AZITHROM250 M1 PO (16:01)
[2018-03-30] MEDS ORDERED: ATORVASTATIN CA80 M1 PO (16:01)
[2018-03-30] MEDS ORDERED: NICODERM T (16:01)
[2018-03-30] MEDS ORDERED: ASPIRIN ADULT L81 M2 PO (16:01)
[2018-03-30] MEDS ORDERED: LOSARTAN POTASS50 M1 PO (16:01)
[2018-03-30] MEDS ORDERED: METOPROLOL SUCC25 M2 PO (16:01)
[2018-03-30] MEDS ORDERED: AMLODIPINE BESYL5 MG PO (16:01)
[2018-03-30] MEDS ORDERED: ENOXAPARIN80 MG/0.2 SC (16:01)
[2018-03-30] MEDS ORDERED: PREDNISONE20 M1 PO (16:01)
[2018-03-30 20:00] VITALS: BP 179/84
[2018-03-31] VITALS: BP 167/85
[2018-03-31 04:00] VITALS: BP 160/80
== END 2018-03-31 06:30 | disposition short-term general hospital (02) | DRG 281 ==
LOC: ED 07:13 → EDHOLD 08:51 → ICCU 08:54
PROVIDERS: Family Medicine; Internal Medicine; Internal Medicine Cardiovascular Disease
DX: I21.4 Non-ST elevation (NSTEMI) myocardial infarction (principal); I50.32 Chronic diastolic (congestive) heart failure; I11.0 Hypertensive heart disease with heart failure; M32.9 Systemic lupus erythematosus, unspecified; I16.1 Hypertensive emergency; I25.110 Atherosclerotic heart disease of native coronary artery with unstable angina pectoris; E53.8 Deficiency of other specified B group vitamins; R73.9 Hyperglycemia, unspecified; K21.9 Gastro-esophageal reflux disease without esophagitis; E78.5 Hyperlipidemia, unspecified; D72.810 Lymphocytopenia; H65.02 Acute serous otitis media, left ear; F17.210 Nicotine dependence, cigarettes, uncomplicated; Z88.0 Allergy status to penicillin; Z88.1 Allergy status to other antibiotic agents; Z91.041 Radiographic dye allergy status; Z79.899 Other long term (current) drug therapy; Z90.710 Acquired absence of both cervix and uterus; Z90.49 Acquired absence of other specified parts of digestive tract; Z82.49 Family history of ischemic heart disease and other diseases of the circulatory system; Z87.81 Personal history of (healed) traumatic fracture; Z71.6 Tobacco abuse counseling

== ENCOUNTER → 2018-04-07 | Outpatient (CLI) | payer OTHER ==
[~2018-04-07] MED LIST changes: +AMLODIPINE BESYL5 MG PO; +ASPIRIN ADULT L81 M2 PO; +ATORVASTATIN CA80 M1 PO; +AVPAK AZITHROM250 M1 PO; +ENOXAPARIN80 MG/0.2 SC; +LOSARTAN POTASS50 M1 PO; +METOPROLOL SUCC25 M2 PO; +NICODERM T; +PREDNISONE20 M1 PO
== END | disposition home or self-care (01) ==
LOC: RESCLI 01:52
DX: I10 Essential (primary) hypertension (principal); E78.5 Hyperlipidemia, unspecified; I25.10 Atherosclerotic heart disease of native coronary artery without angina pectoris; K21.9 Gastro-esophageal reflux disease without esophagitis; F17.210 Nicotine dependence, cigarettes, uncomplicated; Z71.6 Tobacco abuse counseling; Z90.710 Acquired absence of both cervix and uterus

== ENCOUNTER → 2018-05-29 | Outpatient (CLI) | payer OTHER | END | disposition home or self-care (01) | LOC: RESCLI 07:47 | DX: Z12.31 Encounter for screening mammogram for malignant neoplasm of breast (principal); Z12.11 Encounter for screening for malignant neoplasm of colon; I10 Essential (primary) hypertension; E78.5 Hyperlipidemia, unspecified; I25.10 Atherosclerotic heart disease of native coronary artery without angina pectoris; K21.9 Gastro-esophageal reflux disease without esophagitis; K43.9 Ventral hernia without obstruction or gangrene; L93.0 Discoid lupus erythematosus; F17.210 Nicotine dependence, cigarettes, uncomplicated; Z71.6 Tobacco abuse counseling; Z79.899 Other long term (current) drug therapy; Z79.82 Long term (current) use of aspirin; Z90.49 Acquired absence of other specified parts of digestive tract; Z88.8 Allergy status to other drugs, medicaments and biological substances; Z88.0 Allergy status to penicillin ==

== ENCOUNTER 2020-11-10 22:38 | Emergency (ER) | payer OTHER ==
[~2020-11-10 22:38] MED LIST changes: +IBUPROFEN600 MG PO
== END 2020-11-11 01:25 | disposition left against medical advice (07) ==
LOC: ED 22:38
DX: H53.8 Other visual disturbances (principal); Z88.0 Allergy status to penicillin; Z91.041 Radiographic dye allergy status; Z79.899 Other long term (current) drug therapy; Z88.8 Allergy status to other drugs, medicaments and biological substances; Z53.29 Procedure and treatment not carried out because of patient's decision for other reasons

== ENCOUNTER 2022-02-27 23:30 | Inpatient (IN) | payer MEDICARE ==
[~2022-02-27] VITALS: Ht 167.6 cm; Wt 79.5 kg
[2022-02-27 23:42] VITALS: BP 181/109
[2022-02-27] MEDS ORDERED: LOSARTAN-HCTZ1 EAC1 PO (23:45)
[2022-02-27] MEDS ORDERED: OMEPRAZOLE40 MG PO (23:47)
[2022-02-27 23:54] LABS: BASO % 0.5 % (0.0-1.0); EOS # 0.3 10*3/uL (0.0-0.4); EOS % 3.4 % (1.0-4.0); HEMATOCRIT 46.6 % (37.0-47.0); LYMPH # 2.2 10*3/uL (1.3-4.4); LYMPH % 28.5 % (27.0-41.0); MEAN CELL VOLUME 87.9 fl (81.0-99.0); MEAN CORPUSCULAR HGB 29.2 pg (27.0-31.0); MEAN CORPUSCULAR HGB CONC 33.3 g/dl (33.0-37.0); MEAN PLATELET VOLUME 10.3 fl (9.6-12.3); MONO # 0.7 10*3/uL (0.1-1.0); MONO % 8.6 % (3.0-9.0); NEUT # 4.5 10*3/uL (2.3-7.9); NEUT % 58.9 % (47.0-73.0); PLATELET COUNT AUTOMATED 218 10*3/uL (130-400); RED CELL DISTRI WIDTH 13.5 % (0-14.5); WHITE BLOOD COUNT 7.7 10*3/uL (4.8-10.8)
[2022-02-28 00:13] LABS: ALKALINE PHOSPHATASE 110 U/L (45-117); BUN 25 mg/dl (7-24); CHLORIDE 104 mmol/L (98-107); CREATININE 1.07 mg/dL (0.55-1.02); POTASSIUM 3.3 mmol/L (3.5-5.1); SGOT/AST 16 IU/L (3-35); SGPT/ALT 16 U/L (12-78); SODIUM 139 mmol/L (136-145)
[2022-02-28 00:51] VITALS: BP 132/78
[2022-02-28 03:00] VITALS: BP 162/78
[2022-02-28] MEDS ORDERED: ASPIRIN81 M1 PO (04:45)
[2022-02-28 08:00] VITALS: BP 149/84
[2022-02-28 12:00] VITALS: BP 153/76
[2022-02-28 16:00] VITALS: BP 138/75
[2022-02-28 20:00] VITALS: BP 142/79
[2022-03-01] VITALS: BP 130/46
[2022-03-01 06:05] LABS: BUN 23 mg/dl (7-24); CHLORIDE 105 mmol/L (98-107); CHOLESTEROL 191 mg/dL (<200); SGPT/ALT 17 U/L (12-78); SODIUM 137 mmol/L (136-145)
[2022-03-01 06:13] LABS: ALKALINE PHOSPHATASE 89 U/L (45-117); FREE T4 1.06 ng/dl (0.76-1.46); POTASSIUM 4.7 mmol/L (3.5-5.1); SGOT/AST 13 IU/L (3-35); TOTAL PROTEIN 7.5 gm/dL (6.4-8.2); TRIGLYCERIDES 193 mg/dl (<150)
[2022-03-01 06:33] LABS: BASO % 0.1 % (0.0-1.0); HEMATOCRIT 40.9 % (37.0-47.0); LYMPH # 0.9 10*3/uL (1.3-4.4); LYMPH % 5.1 % (27.0-41.0); MEAN CELL VOLUME 88.9 fl (81.0-99.0); MEAN CORPUSCULAR HGB 29.8 pg (27.0-31.0); MEAN CORPUSCULAR HGB CONC 33.5 g/dl (33.0-37.0); MEAN PLATELET VOLUME 11.1 fl (9.6-12.3); MONO # 0.7 10*3/uL (0.1-1.0); MONO % 4.2 % (3.0-9.0); NEUT # 15.7 10*3/uL (2.3-7.9); PLATELET COUNT AUTOMATED 217 10*3/uL (130-400); RED CELL DISTRI WIDTH 13.5 % (0-14.5); WHITE BLOOD COUNT 17.4 10*3/uL (4.8-10.8)
[2022-03-01 08:00] VITALS: BP 158/82
[2022-03-01] MEDS ORDERED: METOPROLOL SUCC25 M2 PO (08:16)
[2022-03-01] MEDS ORDERED: ENOXAPARIN100 MG/1 M SC (08:16)
[2022-03-01] MEDS ORDERED: ATORVASTATIN CA40 M1 PO (08:16)
[2022-03-01 11:12] LABS: LDL CHOLESTEROL 128 mg/dL (9-159)
== END 2022-03-01 09:01 | disposition short-term general hospital (02) | DRG 280 ==
LOC: ED 23:30 → EDHOLD 02-28 01:26 → 5E 02-28 01:26
PROVIDERS: Emergency Medicine; Internal Medicine; ADMIT Internal Medicine; ATTEND Internal Medicine
DX: I21.4 Non-ST elevation (NSTEMI) myocardial infarction (principal); N17.0 Acute kidney failure with tubular necrosis; J18.9 Pneumonia, unspecified organism; I50.32 Chronic diastolic (congestive) heart failure; M32.19 Other organ or system involvement in systemic lupus erythematosus; F41.9 Anxiety disorder, unspecified; E87.6 Hypokalemia; R73.9 Hyperglycemia, unspecified; I11.0 Hypertensive heart disease with heart failure; I25.10 Atherosclerotic heart disease of native coronary artery without angina pectoris; E78.2 Mixed hyperlipidemia; F17.210 Nicotine dependence, cigarettes, uncomplicated; Z95.5 Presence of coronary angioplasty implant and graft; Z82.49 Family history of ischemic heart disease and other diseases of the circulatory system; Z91.041 Radiographic dye allergy status; Z86.73 Personal history of transient ischemic attack (TIA), and cerebral infarction without residual deficits; Z90.710 Acquired absence of both cervix and uterus; Z90.49 Acquired absence of other specified parts of digestive tract; Z88.0 Allergy status to penicillin; Z88.1 Allergy status to other antibiotic agents; Z79.82 Long term (current) use of aspirin; Z79.899 Other long term (current) drug therapy

== ENCOUNTER 2022-03-16 | Emergency (ER) | payer MEDICARE ==
[~2022-03-16] VITALS: Ht 167.6 cm; Wt 78.0 kg
[~2022-03-16] MED LIST changes: +ASPIRIN81 M1 PO; +ATORVASTATIN CA40 M1 PO; +ENOXAPARIN100 MG/1 M SC; +LOSARTAN-HCTZ1 EAC1 PO; +OMEPRAZOLE40 MG PO
[2022-03-16 00:14] LABS: BASO % 0.3 % (0.0-1.0); EOS # 0.5 10*3/uL (0.0-0.4); EOS % 3.9 % (1.0-4.0); HEMATOCRIT 31.8 % (37.0-47.0); LYMPH # 1.6 10*3/uL (1.3-4.4); LYMPH % 13.3 % (27.0-41.0); MEAN CELL VOLUME 92.4 fl (81.0-99.0); MEAN CORPUSCULAR HGB 29.7 pg (27.0-31.0); MEAN CORPUSCULAR HGB CONC 32.1 g/dl (33.0-37.0); MEAN PLATELET VOLUME 9.6 fl (9.6-12.3); MONO # 0.8 10*3/uL (0.1-1.0); MONO % 7.1 % (3.0-9.0); NEUT # 8.8 10*3/uL (2.3-7.9); NEUT % 74.9 % (47.0-73.0); PLATELET COUNT AUTOMATED 368 10*3/uL (130-400); RED BLOOD COUNT 3.44 10*6/uL (4.10-5.10); RED CELL DISTRI WIDTH 14.9 % (0-14.5); WHITE BLOOD COUNT 11.8 10*3/uL (4.8-10.8)
[2022-03-16 00:25] LABS: ACT PARTIAL THROMBO TIME 28.8 SECONDS (20.0-32.1)
[2022-03-16 00:30] LABS: CREATININE 1.21 mg/dL (0.55-1.02); POTASSIUM 3.7 mmol/L (3.5-5.1); TOTAL PROTEIN 6.5 gm/dL (6.4-8.2)
== END 2022-03-16 08:09 | disposition short-term general hospital (02) ==
LOC: ED
PROVIDERS: Surgery
DX: I50.9 Heart failure, unspecified (principal); Z91.041 Radiographic dye allergy status; Z88.0 Allergy status to penicillin; Z88.1 Allergy status to other antibiotic agents; Z79.82 Long term (current) use of aspirin; Z79.899 Other long term (current) drug therapy; Z90.710 Acquired absence of both cervix and uterus; Z90.49 Acquired absence of other specified parts of digestive tract; Z98.890 Other specified postprocedural states; F17.200 Nicotine dependence, unspecified, uncomplicated

== ENCOUNTER → 2023-07-04 | Outpatient (CLI) | payer OTHER | END | disposition home or self-care (01) | LOC: RAD 11:47 | PROVIDERS: ATTEND Nurse Practitioner Family | DX: R06.02 Shortness of breath (principal); Z95.1 Presence of aortocoronary bypass graft ==